=== PATIENT | female | born 1970 | race Caucasian/White ===

== ENCOUNTER 2016-08-30 08:00 | Inpatient (IN) | payer BC ==
[2016-08-27 15:31] VITALS: BMI 26.0
[~2016-08-30 08:00] MED LIST: ceFAZolin SODIUM 1 GM VIAL IVPB ONE
[2016-08-30] MEDS ORDERED: HYDROmorphone HCL CARPU-JECT 2 MG/1 ML DISP.SYRIN IVPB PRN (08:36)
--- NOTE | 2016-08-30 08:36 | HP ---
History & Physical Update - History History: No Change - Physical Physical: No Change - Assessment Assessment: No Change - Plan Plan: No Change
[2016-08-30] MEDS ORDERED: CEFAZOLIN 2 GM in DEXTROSE 5%-WATER - 100 ML IVPB ONE (08:39)
[2016-08-30] MEDS ORDERED: ROPIVACAINE HCL 0.5% 30ML VIAL ONE (08:48)
[2016-08-30] MEDS ORDERED: MIDAZOLAM HCL 2 MG/2 ML SINGLE DOSE VIAL ONE ×2 (08:49)
[2016-08-30] MEDS ORDERED: DESFLURANE GAS 240 ML BOTTLE IH ONE (10:50)
[2016-08-30] MEDS ORDERED: PROPOFOL 20 ML ONE (10:56)
[2016-08-30] MEDS ORDERED: ROCURONIUM BROMIDE 50 MG/5 ML VIAL ONE (10:56)
[2016-08-30] MEDS ORDERED: ceFAZolin SODIUM 1 GM VIAL IVPB ONE (11:10)
[2016-08-30] MEDS ORDERED: GLYCOPYRROLATE 0.2 MG/1 ML VIAL ONE (11:42)
[2016-08-30] MEDS ORDERED: KETOROLAC TROMETHAMINE 30 MG/1 ML VIAL ONE (11:42)
[2016-08-30] MEDS ORDERED: DEXAMETHASONE SOD PHOSPHATE 4 MG/1 ML VIAL ONE (11:42)
[2016-08-30] MEDS ORDERED: NEOSTIGMINE METHYLSULFATE 0.5 MG/ML - 10 ML MDV ONE (11:43)
[2016-08-30] MEDS ORDERED: ONDANSETRON 4 MG/2 ML VIAL IVPUSH PRN ×2 (12:14→12:16)
[2016-08-30] MEDS ORDERED: PROMETHAZINE HCL 25 MG/1 ML VIAL IVPUSH PRN (12:14)
[2016-08-30] MEDS ORDERED: oxyCODONE HCL 5 MG TABLET PO PRN (12:14)
[2016-08-30] MEDS ORDERED: DEXAMETHASONE SOD PHOSPHATE 4 MG/1 ML VIAL IVPUSH ONE (12:16)
[2016-08-30] MEDS ORDERED: PROMETHAZINE HCL 25 MG/1 ML VIAL IVPB PRN (12:16)
[2016-08-30] MEDS: HYDROmorphone *PCA* 10MG/50ML DISP.SYRIN PCA SCH ×2 (12:45→16:21)
[2016-08-30] MEDS ORDERED: HYDROmorphone *PCA* 10MG/50ML DISP.SYRIN PCA SCH (13:58)
[2016-08-30] MEDS: CEFAZOLIN 2 GM/D5W 50 ML IVPB SCH (16:37)
--- NOTE | 2016-08-30 16:37 | OP ---
Operative Note - Note: Operative Date: 08/30/16 Pre-Operative Diagnosis: Leiomyomatous uterus. subserosal myoma. intramural myoma Operation: Total abdominal hysterectomy. Bilateral salpingectomy Findings: uterus 12 cm multiple myomas seen norla tubes & ovaries Post-Operative Diagnosis: Same as Pre-op Surgeon: Nena Barker Hat Steamer: Jodie Carlin Anesthesiologist/PLUMBING DESIGNER: Sly Tinajero Anesthesia: General Specimens Removed: uterus cervix bilateral fallopians Estimated Blood Loss (mls): 30 Operative Report Dictated: Yes
[2016-08-30] MEDS: LACTATED RINGERS SOLUTION 1,000 ML IV SCH (17:57)
[2016-08-30 19:17] LABS: BASOPHIL 0.2 % (0-2.0); MCH 29.6 pg (25.7-33.7); MCHC 33.5 g/dl (32.0-36.0); MEAN CELL VOLUME 88.4 fl (80-96); MEAN PLT VOLUME 7.7 fl (7.5-11.1); NEUTROPHILS 90.5 % (42.8-82.8); PLATELET COUNT 250 K/MM3 (134-434); WHITE BLOOD COUNT 14.5 K/mm3 (4.0-10.0)
[2016-08-30 20:30] LABS: CALCIUM 8.9 mg/dL (8.5-10.1); CREATININE 1.1 mg/dL (0.55-1.02)
[2016-08-31] MEDS: LACTATED RINGERS SOLUTION 1,000 ML IV SCH (01:05)
[2016-08-31] MEDS: CEFAZOLIN 2 GM/D5W 50 ML IVPB SCH (01:34)
[2016-08-31] MEDS ORDERED: oxyCODONE HCL 5 MG TABLET PO PRN (06:58)
--- NOTE | 2016-08-31 06:58 | PN ---
Progress Note, Physician Chief Complaint: Pt seen/evaluted and doing well. Pain controlled, tolerating clear diet. Ortega catheter in place draining clear yellow urine. Scant VB yesterday, none now. Denies CP/SOB/F/C/SCHAFFER or any other complaints. - Current Medication List Current Medications: Active Medications Enoxaparin Sodium (Lovenox -) 40 mg SQ DAILY [facility] Fentanyl (Sublimaze Injection -) 50 mcg IVPUSH [id number] PRN PRN Reason: PAIN Stop: 09/02/16 12:15 Hydromorphone HCl (Dilaudid Injection -) 2 mg IVPB Q4H PRN PRN Reason: PAIN Lactated Ringer's (Lactated Ringers Solution) 1,000 mls @ 125 mls/hr IV ASDIR PIA Last Admin: 08/31/16 01:05 Dose: 125 mls/hr Ibuprofen (Caldolor Injection -) 800 mg IVPB Q8H PRN PRN Reason: FEVER Oxycodone HCl (Roxicodone -) 5 mg PO Q4H PRN PRN Reason: MILD PAIN Stop: 08/31/16 12:13 Promethazine HCl (Phenergan Injection -) 12.5 mg IVPB Q6H PRN PRN Reason: NAUSEA AND/OR VOMITING - Objective Vital Signs: Vital Signs Temperature 98.2 F 08/31/16 06:22 Pulse Rate 77 08/31/16 06:22 Respiratory Rate 16 08/31/16 06:22 Blood Pressure 118/66 08/31/16 06:22 O2 Sat by Pulse Oximetry (%) 98 08/30/16 21:00 Constitutional: Yes: Well Nourished, No Distress, Calm Eyes: Yes: Conjunctiva Clear, EOM Intact HENT: Yes: Atraumatic, Normocephalic Neck: Yes: Supple, Trachea Midline Cardiovascular: Yes: Regular Rate and Rhythm Respiratory: Yes: Regular, CTA Bilaterally Gastrointestinal: Yes: Normal Bowel Sounds, Soft, Tenderness (appropriate post surgical tenderness) Extremities: Yes: WNL Wound/Incision: Yes: Clean/Dry, Well Approximated, Steri Strips, Dressing Dry and Intact Neurological: Yes: Alert, Oriented Psychiatric: Yes: Alert, Oriented Labs: CBC, BMP 08/30/16 19:00 08/30/16 19:00 Problem List - Problems (1) History of hysterectomy for benign disease Code(s): Z90.710 - ACQUIRED ABSENCE OF BOTH CERVIX AND UTERUS Assessment/Plan 46 y/o POD#1 s/p total abdominal hysterectomy and b/l salpingectomy - AFVSS - CBC pending - routine care: encourage ambulation, d/c ortega and MACHINE FARMWORKER this a.m., advance diet as tolerated
[2016-08-31] MEDS ORDERED: ONDANSETRON 4 MG/2 ML VIAL ONE (07:43)
[2016-08-31 07:44] LABS: BASOPHIL 0.3 % (0-2.0); EOSINOPHIL 0.4 % (0-4.5); MCH 30.2 pg (25.7-33.7); MCHC 34.1 g/dl (32.0-36.0); MEAN CELL VOLUME 88.6 fl (80-96); MEAN PLT VOLUME 7.6 fl (7.5-11.1); NEUTROPHILS 75.4 % (42.8-82.8); PLATELET COUNT 235 K/MM3 (134-434); RDW 12.7 % (11.6-15.6); WHITE BLOOD COUNT 10.4 K/mm3 (4.0-10.0)
[2016-08-31 08:03] LABS: CALCIUM 8.4 mg/dL (8.5-10.1)
[2016-08-31 08:04] LABS: CREATININE 1.3 mg/dL (0.55-1.02)
[2016-08-31] MEDS: IBUPROFEN 800 MG/8 ML IJ IVPB PRN ×2 (10:04→22:36)
[2016-08-31] MEDS: ENOXAPARIN NA (PORCINE) 40 MG/0.4 ML DISP.SYRIN SQ SCH (10:04)
--- NOTE | 2016-08-31 12:26 | PATH ---
Surgical Pathology Report Patient Name: TEETEE REAGAN [facility]. Rec. #: [id number] /Age/Gender: 1970 (Age: 46) / F Account: [id number] Location: [facility] MED/SURG Taken: 08/30/2016 Received: 08/30/2016 Reported: 08/31/2016 Physicians: Nena Barker M.D. Specimen(s) Received UTERUS, CERVIX & BILATERAL TUBES Clinical History Leiomyoma of uterus Final Diagnosis UTERUS, CERVIX, BILATERAL TUBES, TOTAL ABDOMINAL HYSTERECTOMY, BILATERAL SALPINGECTOMY: CERVIX: CHRONIC CERVICITIS. ENDOMETRIUM: DYSSYNCHRONOUS. MYOMETRIUM: LEIOMYOMATA WITH DEGENERATIVE CHANGES (LARGEST 4.8 CM). UTERINE SEROSA: WITH NO SIGNIFICANT PATHOLOGIC CHANGES. LEFT FALLOPIAN TUBE: WITHOUT SIGNIFICANT PATHOLOGIC CHANGES. RIGHT FALLOPIAN TUBE: PARATUBAL CYST. Electronically Signed Jose Caceres M.D. Gross Description Received in formalin, labeled "uterus, cervix, bilateral tubes" is a 293 g hysterectomy specimen including a uterus, attached cervix and bilateral attached fallopian tubes. The specimen measures 11.5 cm from left to right, 9.8 cm from superior to inferior and 8.0 cm from anterior to posterior. The serosa is pink-pink with abundant bulging subserosal nodules. The attached cervix measures 3 cm in length and averages 3.3 cm in diameter. The ectocervix is pink-pink, smooth and glistening. The endocervix is unremarkable. The endometrial cavity measures 4.5 cm in length and 2.2 cm from cornu to cornu. The endometrium is pink and averages 0.1 cm in thickness. The myometrium displays abundant intramural nodules, measuring up to 4.8 cm in greatest dimension. The cut surface of the subserosal and intramural nodules displays pink, firm rubbery parenchyma with whorled architecture. No areas of hemorrhage or necrosis are identified. The remaining myometrium is pink-pink and averages 3.9 cm in thickness. The left fimbriated fallopian tube measures 4 cm in length. The outer surface is valdez-purple with a small paratubal cyst. Sectioning reveals a pinpoint lumen. The right fimbriated fallopian tube measures 5 cm in length. The outer surface is pink-red and. Sectioning reveals a pinpoint lumen. General Accountant sections are submitted in 17 cassettes as follows: 1-anterior cervix; 2-posterior cervix; 9-8-iiwsnrxn endomyometrium; 7-6-nmkgnesfo endomyometrium; 3-8-lgoecqusxf nodules; 86-48-romswvsgbq nodules; 14-left fallopian tube fimbria; 15-cross sections of left fallopian tube; 16-right fallopian tube fimbria; 17-cross sections of right fallopian tube. 08/30/201608/30/2016
--- NOTE | 2016-08-31 14:26 | PN ---
Progress Note (short form) - Note Progress Note: Pt seen. POD#1 after GERARDO/BSO. PRODUCT FINISHER d/c'd this am by the surgeon. Pt c/o nausea being rx'd with zofran. No recall intraop. No obvious anesthesia complications.
[2016-08-31] MEDS ORDERED: ONDANSETRON 4 MG/2 ML VIAL IVPB PRN (14:46)
[2016-08-31] MEDS: IBUPROFEN 600 MG TABLET (FP) PO PRN (16:05)
--- NOTE | 2016-08-31 17:25 | OP ---
DATE OF OPERATION: 08/30/2016 PREOPERATIVE DIAGNOSIS: Leiomyomas, uterus. Subserosal myomas and intramural myomas. OPERATION: Total abdominal hysterectomy and bilateral salpingectomy. FINDINGS: Uterus approximately 12 cm in size with multiple myomas, subserosal myomas. Normal tubes, normal ovaries. SURGEON: Wander Porter M.D. SUPERVISOR STONE: Jodie Carlin M.D. ANESTHESIOLOGIST: Sly Tinajero M.D. ANESTHESIA: General. ESTIMATED BLOOD LOSS: 30 mL. SPECIMENS REMOVED: Uterus, cervix, and fallopian tubes. PROCEDURE: Patient was taken to the operating room, placed in supine position, prepped and draped in usual sterile fashion after Mcgee catheter had been placed. A timeout was performed in accordance with hospital regulation. Pfannenstiel skin incision was made with the scalpel. Cautery was then used to go through the layers of abdominal wall to the fascia. Fascia was cut in midline and cautery was then used to open the fascia in smiling fashion. Aline was then used to bluntly, sharply dissect the rectus muscle of the fascia. Muscle split in the midline, peritoneal cavity was then entered and carried upward and downward. A 12-cm multiple myomas of the uterus was exteriorized. Bladder retractor was then placed. Round ligament was identified, and ligasure was then used to cut the round ligaments. Uterine- ovarian ligaments identified and clamped and cut. Bilateral tubes were noted to be normal, and cautery with the left tube was done. Uterine artery was identified and skeletonized. Vesicouterine was then entered and cut and then bladder was bluntly dissected out of the abdominal field. Bladder retractor then replaced. Uterine artery was then grasped with Ligasure, clamped and cut. Cardinal ligament identified, clamped and cut to the level of the cervix. The same procedure was repeated on the other side. Cautery was then used to cut the vagina and it was entered, and then Jyotien scissors were then used to cut the vagina away from the cervix. The specimen submitted to pathology with bilateral fallopian tubes, uterus and cervix. Vagina was then closed using 0 Vicryl suture in a continuous locking stitch. Hemostasis was achieved. All pedicles were checked, and hemostasis was then achieved using Ligasure. Ureters were identified, found to have bilateral peristalsis. Irrigation was performed, and peritoneum closed using 0 Vicryl suture in continuous fashion. Fascia was then closed using 0 Vicryl suture in 2 parts. Skin was then closed using 3-0 Vicryl subcuticular fascia. Wound was washed and dressed, Steri-Strips placed. Patient tolerated procedure well, was taken to recovery room in stable condition. Estimated blood loss was 30 mL. WANDER PORTER M.D. [id number] MTDD
[2016-09-01] MEDS: IBUPROFEN 600 MG TABLET (FP) PO PRN ×3 (04:59→17:15)
[2016-09-01] MEDS: ENOXAPARIN NA (PORCINE) 40 MG/0.4 ML DISP.SYRIN SQ SCH (13:04)
--- NOTE | 2016-09-01 14:33 | PN ---
Progress Note (SOAP) - Subjective Chief Complaint: Pt with abdominal pain not passing flatus - Current Medications Current Medications: Active Medications Enoxaparin Sodium (Lovenox -) 40 mg SQ DAILY PIA Last Admin: 09/01/16 13:04 Dose: 40 mg Fentanyl (Sublimaze Injection -) 50 mcg IVPUSH [id number] PRN PRN Reason: PAIN Stop: 09/02/16 12:15 Hydromorphone HCl (Dilaudid Injection -) 2 mg IVPB Q4H PRN PRN Reason: PAIN Ibuprofen (Caldolor Injection -) 800 mg IVPB Q8H PRN PRN Reason: FEVER Last Admin: 08/31/16 22:36 Dose: 800 mg Ibuprofen (Motrin -) 600 mg PO Q6H PRN PRN Reason: FEVER Last Admin: 09/01/16 10:25 Dose: 600 mg Ondansetron HCl (Zofran Injection) 4 mg IVPB Q4H PRN PRN Reason: NAUSEA AND/OR VOMITING Oxycodone HCl (Roxicodone -) 10 mg PO Q4H PRN PRN Reason: PAIN LEVEL 6-10 Promethazine HCl (Phenergan Injection -) 12.5 mg IVPB Q6H PRN PRN Reason: NAUSEA AND/OR VOMITING - Objective Vital Signs: Vital Signs Temperature 97.6 F 09/01/16 10:00 Pulse Rate 82 09/01/16 10:00 Respiratory Rate 20 09/01/16 10:00 Blood Pressure 102/64 09/01/16 10:00 O2 Sat by Pulse Oximetry (%) 97 09/01/16 09:00 Constitutional: Yes: Well Nourished, No Distress Cardiovascular: Yes: WNL, Regular Rate and Rhythm Gastrointestinal: Yes: WNL, Soft, Hypoactive Bowel Sounds Musculoskeletal: Yes: WNL Extremities: Yes: WNL Edema: No Integumentary: Yes: WNL Neurological: Yes: WNL, Alert, Oriented Labs Lab Results: CBC, BMP 08/31/16 07:05 08/31/16 07:05 Problem List - Problems (1) History of hysterectomy for benign disease Code(s): Z90.710 - ACQUIRED ABSENCE OF BOTH CERVIX AND UTERUS Assessment/Plan s/p GERARDO POd2 no flatus Plan dulculax DC home in AM
[2016-09-01] MEDS ORDERED: BISACODYL 10 MG SUPP.RECT RC PRN (15:07)
[2016-09-02] MEDS: IBUPROFEN 600 MG TABLET (FP) PO PRN ×2 (00:12→06:33)
[2016-09-02 06:50] VITALS: BP 103/65; PULSE 102; TEMP 98.7
== END 2016-09-02 07:00 | disposition home or self-care (01) | DRG 743 ==
LOC: JSAMEDAYSX 08:00 → J8W 16:00
PROVIDERS: ADMIT Obstetrics & Gynecology; ATTEND Obstetrics & Gynecology
PROC: 0UTC0ZZ Resection of Cervix, Open Approach (ICD-10-PCS; 2016-08-30)
PROC: 0UT70ZZ Resection of Bilateral Fallopian Tubes, Open Approach (ICD-10-PCS; 2016-08-30)
PROC: 0UT90ZZ Resection of Uterus, Open Approach (ICD-10-PCS; principal; 2016-08-30 10:00)
DX: D25.2 Subserosal leiomyoma of uterus (principal); D25.1 Intramural leiomyoma of uterus
CPT/HCPCS: 36415; 80048; 84703; 85025; 88307-TC; 94010; 94760

== ENCOUNTER 2017-04-03 15:20 | Emergency (ER) | payer BC ==
[2017-04-03 15:27] VITALS: BP 97/75; PULSE 87; TEMP 98.6; BMI 24.3
[2017-04-03 16:25] LABS: URINE APPEARANCE SLCLOUDY; URINE BILIRUBIN NEGATIVE (NEGATIVE); URINE BLOOD 3+ (NEGATIVE); URINE COLOR YELLOW; URINE GLUCOSE (UA) NEGATIVE (NEGATIVE); URINE KETONE TRACE (NEGATIVE); URINE NITRITE NEGATIVE (NEGATIVE); URINE PROTEIN NEGATIVE (NEGATIVE); URINE UROBILINOGEN NEGATIVE mg/dL (0.2-1.0)
--- NOTE | 2017-04-03 16:34 | PDOC ---
History of Present Illness - General Chief Complaint: Urinary Problem Stated Complaint: UTI Time Seen by Provider: 04/03/17 16:02 History Source: Patient Exam Limitations: No Limitations - History of Present Illness Travel History: No Initial Comments: 04/03/17 16:31 46 yr female with c/o foul smelling urine urgency and burning for one day. neg fever neg chills neg nvd. Timing/Duration: reports: constant Abdominal Pain Onset Location: denies: epigastric, periumbilical, suprapubic, generalized abdomen Past History - Past Medical History Allergies/Adverse Reactions: Allergies Allergy/AdvReac Type Severity Reaction Status Date / Time No Known Drug Allergies Allergy Verified 04/03/17 15:22 Home Medications: Ambulatory Orders Cephalexin [Keflex] 500 mg PO BID #14 capsule 04/03/17 Other medical history: none - Surgical History Orthopedic Surgery: Yes (RIGHT KNEE SURGERY) - Psycho/Social/Smoking Cessation Hx Anxiety: No Suicidal Ideation: No Smoking Status: No Smoking History: Never smoked Have you smoked in the past 12 months: No Number of Cigarettes Smoked Daily: 0 Information on smoking cessation initiated: No Hx Alcohol Use: No Drug/Substance Use Hx: No Substance Use Type: None Hx Substance Use Treatment: No Review of Systems - Review of Systems Able to Perform ROS?: Yes Is the patient limited Thai proficient: No Constitutional: No: Symptoms Reported HEENTM: No: Symptoms Reported Respiratory: No: Symptoms reported, Other ABD/GI: No: Symptoms Reported : Yes: Symptoms Reported, See HPI Musculoskeletal: No: Symptoms Reported *Physical Exam - Vital Signs Last Vital Signs Temp Pulse Resp BP Pulse Ox 98.6 F 87 18 97/75 100 04/03/17 15:23 04/03/17 15:23 04/03/17 15:23 04/03/17 15:23 04/03/17 15:23 - Physical Exam General Appearance: Yes: Nourished, Appropriately Dressed HEENT: positive: EOMI, MONIQUE, TMs Normal, Pharynx Normal Neck: positive: Supple Respiratory/Chest: positive: Lungs Clear, Normal Breath Sounds Cardiovascular: positive: Regular Rhythm, Regular Rate Gastrointestinal/Abdominal: positive: Normal Bowel Sounds, Soft. negative: Tender Musculoskeletal: positive: Normal Inspection Extremity: positive: Normal Capillary Refill, Normal Inspection, Normal Range of Motion Integumentary: positive: Normal Color, Dry, Warm Neurologic: positive: Fully Oriented, Alert, Normal Mood/Affect, Normal Response , Motor Strength 5/5 Medical Decision Making - Medical Decision Making 04/03/17 16:32 cc: urinary burning and foul smelling urine for one day LMP 2 yrs ago s/p hysterectomy no vaginal discharge will check UA *DC/Admit/Observation/Transfer Diagnosis at time of Disposition: Urinary tract infection Qualifiers: Urinary tract infection type: acute cystitis Hematuria presence: with hematuria Qualified Code(s): N30.01 - Acute cystitis with hematuria - Discharge Dispostion Disposition: HOME Condition at time of disposition: Good - Prescriptions Prescriptions: Cephalexin [Keflex] 500 mg PO BID #14 capsule - Patient Instructions Additional Instructions: please follow with your primary care doctor or grease renderer in one week for repeat testing drink pleanty of water to stay well hydrated take the keflex antibiotic for 7 days return to ER for any worsening symptoms
[2017-04-03 16:47] LABS: URINE LEUK ESTERASE 3+ (NEGATIVE)
[2017-04-03 16:48] LABS: URINE HYALINE CAST 2 /lpf; URINE MUCUS RARE; URINE RBC 43 /hpf (0-3); URINE WBC 158 /hpf (3-5)
[2017-04-03] MEDS ORDERED: CEPHALEXIN MONOHYDRATE 500 MG CAPSULE (UD) PO ONE (16:50)
[2017-04-03] MEDS ORDERED: CEPHALEXIN MONOHYDRATE 500 MG CAPSULE (UD) ONE (16:57)
--- NOTE | 2017-04-06 17:36 | PDOC ---
Patient Follow-up (Call Back) - Post ED Follow - Up Condition at time of discharge: Good Disposition at time of original discharge: HOME Reason for Call Back: Abnwl. Microbiology (Patient with positive urine culture on Keflex, susceptible appropriate therapy.)
== END 2017-04-03 17:09 | disposition home or self-care (01) ==
LOC: JERFT 15:20
DX: N30.01 Acute cystitis with hematuria (principal)
CPT/HCPCS: 36415; 81003; 81015; 84703; 87086; 87186; 87491; 87591; 99281-25